=== PATIENT | female | born 1960 | race Caucasian/White ===

== ENCOUNTER 2019-12-25 16:48 | Emergency (ER) | payer BC, SELFPAY ==
[2019-12-25 17:01] VITALS: BP 157/98; PULSE 89; RESP 16; TEMP 37.3; O2SAT 99
--- NOTE | 2019-12-25 17:09 | ED.FEMALEGU ---
HPI - Female Genitourinary General Chief complaint: Urogenital-Female Stated complaint: possible uti History of Present Illness HPI Narrative: This is a 59-year-old white female who presented today with complaints of painful urination and frequent night urination, with urinary pressure. According to patient about 3 to 4 days ago she developed dysuria, frequency, nocturia. she would get up at least 5-6 times at night to urinate. She did take cystex at home to relieve the pain she did have a little relief. The patient denies SOB, CP, palpitation, extremity numbness, lightheadedness, dizziness, constipation, diarrhea, chills, hematuria, abdominal pain or cramping or incontinence or fever. Patients with leukocytes RBCs and nitrite in UA. Urine sent off for culture MD elicited complaint: dysuria Related Data Home Medications Medication Instructions Recorded Confirmed atorvastatin 40 mg PO DAILY 12/25/19 12/25/19 clotrimazole-betamethasone 1 applic TOPICAL BID 12/25/19 12/25/19 glycopyrrolate-formoterol [Bevespi 2 inh INHALATION DAILY 12/25/19 12/25/19 Aerosphere] metformin 500 mg PO DIRECTED 12/25/19 12/25/19 dsofsjdlea-nzpcjfazr-jgzmsrdgm 1 tablet PO DAILY 12/25/19 12/25/19 omeprazole 40 mg PO DAILY 12/25/19 12/25/19 semaglutide [Rybelsus] 7 mg PO DIRECTED 12/25/19 12/25/19 Allergies Allergy/AdvReac Type Severity Reaction Status Date / Time Penicillins Allergy Mild Rash Verified 12/25/19 17:01 Review of Systems Review of Systems: All systems reviewed & are unremarkable except as noted in HPI and below (10 point system review) [facility] Social History Social History Gender identity (if verbalized by the patient): Female Exam Narrative: Exam Narrative: GENERAL: This is a well-nourished, well-developed patient, in no apparent distress. HEAD: normocephalic, atraumatic. EYES: PERRL. Sclera clear/white. Vision is grossly intact. EARS: External ears normal, auditory canals clear and without drainage, TMs normal without perforation. Hearing grossly intact. NOSE: External nose normal with no obvious nasal discharge, nares without redness, no rhinorrhea. THROAT: Mucous membranes moist, posterior pharynx clear. NECK: Neck supple, non-tender without lymphadenopathy, masses or thyromegaly. CARDIOVASCULAR: Regular rate and rhythm without murmurs, gallops, or rubs. RESPIRATORY: Clear to auscultation. Breath sounds equal bilaterally. No wheezes, rales, or rhonchi. GASTROINTESTINAL: Abdomen soft, non-tender, nondistended. Bowel sounds are active. No hepato-splenomegaly, or palpable masses. No guarding. SKIN: warm, intact with no suspicious lesions or rash, good texture and turgor. NEURO: awake, alert, and oriented to person, place and time. There were no obvious focal neurologic abnormalities. Steady gait EXTREMITIES: Normal range of motion. No edema. No calf tenderness. Negative Homans sign bilaterally. BACK: Nontender without deformity or crepitance. No flank tenderness. Course Course Emergency Course: Patient discharged home with Macrobid is 100 mg p.o. twice daily for 7 days Vital Signs Vital signs: Vital Signs Temperature 99.2 F 12/25/19 17:01 Pulse Rate 89 12/25/19 17:01 Respiratory Rate 16 12/25/19 17:01 Blood Pressure 157/98 H 12/25/19 17:01 Pulse Oximetry 99 12/25/19 17:01 Temperature 99.2 F 12/25/19 17:01 Pulse Rate 89 12/25/19 17:01 Respiratory Rate 16 12/25/19 17:01 Blood Pressure 157/98 H 12/25/19 17:01 Pulse Oximetry 99 12/25/19 17:01 MDM - Female Genitourinary Lab Data Attestation: I reviewed the patient's lab results. Labs: Urine Glucose Negative Reference Range: Negative Urine Bilirubin Negative Reference Range: Negative Urine Ketone Negative
== END 2019-12-25 17:19 | disposition home or self-care (01) ==
PROVIDERS: Emergency Provider Nurse Practitioner; PCP Physician Assistant
DX: N39.0 Urinary tract infection, site not specified (principal); E78.00 Pure hypercholesterolemia, unspecified; I10 Essential (primary) hypertension; E11.9 Type 2 diabetes mellitus without complications
CPT/HCPCS: 81003; 87077; 87086; 87088; 87186; 99213; G0463

== ENCOUNTER 2020-04-09 17:58 | Emergency (ER) | payer BC, SELFPAY ==
[2020-04-09 18:14] VITALS: BP 163/84; PULSE 104; RESP 18; TEMP 37.2; O2SAT 97
--- NOTE | 2020-04-09 18:33 | ED.FEMALEGU ---
HPI - Female Genitourinary General Chief complaint: Urogenital-Female Stated complaint: UTI Time Seen by Provider: 04/09/20 18:26 Source: patient and RN notes reviewed Mode of arrival: ambulatory Limitations: no limitations History of Present Illness HPI Narrative: Patient presents today complaint of a 10-day history of dysuria. She has started developing low back pain and lower abdominal cramping in the last several days. Denies hematuria, fever, nausea or vomiting, sweats or chills. She has been taking Cystex which includes ibuprofen as well as Azo cranberry. Patient had a UTI back in December 2019 and was treated with Macrobid. She is sensitive per her previous urine culture. MD elicited complaint: dysuria Related Data Home Medications Medication Instructions Recorded Confirmed atorvastatin 40 mg PO DAILY 12/25/19 12/25/19 clotrimazole-betamethasone 1 applic TOPICAL BID 12/25/19 12/25/19 glycopyrrolate-formoterol [Bevespi 2 inh INHALATION DAILY 12/25/19 12/25/19 Aerosphere] metformin 500 mg PO DIRECTED 12/25/19 12/25/19 cllzlcadow-llxyyllom-meumcfxmh 1 tablet PO DAILY 12/25/19 12/25/19 omeprazole 40 mg PO DAILY 12/25/19 12/25/19 semaglutide [Rybelsus] 7 mg PO DIRECTED 12/25/19 12/25/19 Allergies Allergy/AdvReac Type Severity Reaction Status Date / Time Penicillins Allergy Mild Rash Verified 12/25/19 17:01 Review of Systems Review of Systems: Narrative: CONSTITUTIONAL: Denies body aches, fever, chills, or sweats. EYES: Denies visual changes, redness, or discharge. ENT: Denies rhinorrhea, congestion, sore throat, or otalgia. CARDIOVASCULAR: Denies chest pain, palpitations, or edema. RESPIRATORY: Denies cough or dyspnea. GASTROINTESTINAL: Denies nausea, vomiting, or diarrhea. + Lower abdominal cramping GENITOURINARY: Denies hematuria. + Dysuria SKIN: Denies rash, itching, or wounds. MUSCULOSKELETAL: Denies joint pain, or myalgia. + Low back pain NEUROLOGIC: Denies headache, numbness, tingling, or weakness. PSYCH: Denies depression or anxiety. [facility] Past Medical History Medical History (Updated 04/09/20 @ 18:37 by Dina Cox, INSTALLMENT ACCOUNT CHECKER, ) Diabetes GERD (gastroesophageal reflux disease) Hypercholesterolemia Hypertension Social History Social History Gender identity (if verbalized by the patient): Female Comments At time of signature, I have reviewed and agree with nursing past medical, surgical, social and family history unless otherwise noted. Please see nursing chart for further information. There is no relevant family history pertinent to the presenting complaint Exam Narrative: Exam Narrative: GENERAL: Well-appearing, well-nourished, and in no acute distress. HEAD: Normocephalic, atraumatic. EYES: EOMI. No redness or drainage. Conjunctivae normal. ENT: Mucous membranes pink and moist. NECK: Normal AROM. CHEST: No respiratory distress. Clear to auscultation. HEART: Regular rate and rhythm. No murmur appreciated. Normal peripheral pulses. ABDOMEN: Soft, nondistended, normal active bowel sounds. + Tender suprapubic area. -CVAT MUSCULOSKELETAL: No bony tenderness. EXTREMITIES: Normal range of motion. No edema. SKIN: Warm, dry, no rash. Capillary refill normal. Normal skin turgor. NEURO: No focal deficits. Alert and oriented x3. Gait steady. PSYCH: Normal affect. No signs of depression or anxiety. Course Vital Signs Vital signs: Vital Signs Temperature 99.0 F 04/09/20 18:14 Pulse Rate 104 H 04/09/20 18:14 Respiratory Rate 18 04/09/20 18:14 Blood Pressure 163/84 H 04/09/20 18:14 Pulse Oximetry 97 04/09/20 18:14 Temperature 99.0 F 04/09/20 18:14 Pulse Rate 104 H 04/09/20 18:14 Respiratory Rate 18 04/09/20 18:14 Blood Pressure 163/84 H 04/09/20 18:14 Pulse Oximetry 97 04/09/20 18:14 Reviewed. Pt has been instructed to follow up with her PCP regarding her elevated blood pressure today
== END 2020-04-09 18:43 | disposition home or self-care (01) ==
PROVIDERS: Emergency Provider Nurse Practitioner; PCP Physician Assistant
DX: N30.00 Acute cystitis without hematuria (principal); E11.9 Type 2 diabetes mellitus without complications; K21.9 Gastro-esophageal reflux disease without esophagitis; E78.00 Pure hypercholesterolemia, unspecified; I10 Essential (primary) hypertension
CPT/HCPCS: 81003; 87086; 99213; G0463

== ENCOUNTER 2020-05-25 09:35 | Outpatient (CLI) | payer BC, SELFPAY ==
--- NOTE | ~2020-05-25 | MM_ITS ---
EXAMINATION: MM screening moris BI w john HISTORY: Screening TECHNIQUE: Craniocaudal and mediolateral oblique 3-D tomosynthesis images were obtained and synthetic 2-D images were generated. CAD analysis was submitted and interpreted. COMPARISON: Comparison to multiple prior studies sequentially, with oldest reviewed study dated 04/2010. BREAST PARENCHYMAL COMPOSITION: There are scattered areas of fibroglandular density. FINDINGS: Slightly increased size of 9 mm mass in the lower inner quadrant of the right breast. The l eft breast is stable without new mass, calcification or suspicious architectural distortion. IMPRESSION: 1. Subtle increased size of circumscribed radiolucent 9 mm mass lower inner quadrant of the right brendan ast. 2. Targeted right breast ultrasound recommended. BI-RADS Category 0: Incomplete: Needs additional imaging evaluation. Reviewed, dictated and finalized at location A. IMPRESSION: 1. Subtle increased size of circumscribed radiolucent 9 mm mass lower inner alysha drant of the right breast. 2. Targeted right breast ultrasound recommended. BI-RADS Category 0: Incomplete: Needs additional imaging evaluation.
== END 2020-05-25 09:36 | disposition home or self-care (01) ==
LOC: ANHIMG 09:38
PROVIDERS: PCP Physician Assistant; Visit Provider Physician Assistant
DX: Z12.31 Encounter for screening mammogram for malignant neoplasm of breast (principal); R92.8 Other abnormal and inconclusive findings on diagnostic imaging of breast
CPT/HCPCS: 77063; 77067

== ENCOUNTER 2020-06-14 12:25 | Outpatient (CLI) | payer BC, SELFPAY ==
--- NOTE | ~2020-06-14 | MMUS_ITS ---
EXAMINATION: MM diagnostic mammo unilat RT, US breast RT limited HISTORY: Follow-up right breast mass TECHNIQUE: Additional 3-D tomosynthesis images of the right breast were performed and synthetic 2-D i mages were generated. CAD analysis was submitted and interpreted. High resolution Limited right breas t ultrasound was performed. COMPARISON: Comparison to multiple prior studies sequentially, with oldest reviewed study dated 02/28. BREAST PARENCHYMAL COMPOSITION: Breast composed of scattered areas of fibroglandular density. FINDINGS: MAMMOGRAPHIC FINDINGS: There is a radiolucent mass in the lower inner quadrant of the right breast with circumscribed margin s measuring 8 mm, middle third. There are no suspicious calcifications or architectural distortion. ULTRASOUND: Limited right breast ultrasound: At 2:00, 3 cm from the nipple there is an 8 mm cyst corresponding to the mammographic finding. No suspicious masses to suggest malignancy. IMPRESSION: 1. No evidence for malignancy in the right breast. Benign findings. 2. Routine yearly screening mammogram and regular clinical breast examination are recommended. BI-RADS Category 2: Benign finding(s). Reviewed, dictated and finalized at location A. IMPRESSION: 1. No evidence for malignancy in the right breast. Benign findings. 2. Routine yearly screening mammogram and regular clinical breast examination a re recommended. BI-RADS Category 2: Benign finding(s).
== END 2020-06-14 12:26 | disposition home or self-care (01) ==
PROVIDERS: PCP Physician Assistant; Visit Provider Physician Assistant
DX: R92.8 Other abnormal and inconclusive findings on diagnostic imaging of breast (principal)
CPT/HCPCS: 76642; 77065

== ENCOUNTER 2021-01-08 11:09 | Emergency (ER) | payer BC, SELFPAY ==
--- NOTE | 2021-01-08 11:17 | ED.GENADULT ---
HPI - General Adult General Chief complaint: Head Injury Stated complaint: redness left eye/head injury Time Seen by Provider: 01/08/21 11:37 Source: patient Mode of arrival: ambulatory Limitations: no limitations History of Present Illness HPI narrative: 61-year-old female patient presents to the [facility] with complaints of left eye redness and head injury. Patient states that about 5 days ago she was celebrating her birthday at a bar. Patient states that she is type II diabetic and was taking shots. Patient states that She knows she is on the floor of a concrete bathroom and people are helping her up. Patient states that she does have a laceration to her lip that was swollen but is doing much better. Patient states she noticed that her eye is red. But her concerning symptoms is that she is still feeling lightheaded, dizzy and nauseous even after her fall. Unaware if she hit her head or not because she does not remember the incident. Related Data Home Medications Medication Instructions Recorded Confirmed clotrimazole-betamethasone 1 applic TOPICAL BID 12/25/19 12/25/19 glycopyrrolate-formoterol [Bevespi 2 inh INHALATION DAILY 12/25/19 12/25/19 Aerosphere] metformin 500 mg PO DIRECTED 12/25/19 12/25/19 kflaapgude-whvjkhrfa-tidmsofxc 1 tablet PO DAILY 12/25/19 12/25/19 omeprazole 40 mg PO DAILY 12/25/19 12/25/19 Allergies Allergy/AdvReac Type Severity Reaction Status Date / Time Penicillins Allergy Mild Rash Verified 01/08/21 11:43 Review of Systems Review of Systems: CONSTITUTIONAL: Denies fever, chills, or sweats. EYES: Denies visual changes, positive right eye redness, denies discharge. ENT: Denies rhinorrhea, congestion, sore throat, or otalgia. CARDIOVASCULAR: Denies chest pain, palpitations, or edema. RESPIRATORY: Denies cough or dyspnea. GASTROINTESTINAL: Denies abdominal pain, positive nausea, negative vomiting, or diarrhea. GENITOURINARY: Denies dysuria or hematuria. SKIN: Denies rash or itching. MUSCULOSKELETAL: Denies back pain, joint pain, or myalgia. NEUROLOGIC: Positive headache, denies numbness, or weakness. Positive lightheadedness, dizziness PSYCHIATRIC: Denies anxiety or depression. PMFSH Past Medical History Medical History Diabetes GERD (gastroesophageal reflux disease) Hypercholesterolemia Hypertension Social History Social History Gender identity (if verbalized by the patient): Female Comments At the time of my signature I agree with nursing past medical history, surgical, social, and family history. There is no relevant family history pertinent to the presenting complaint. Exam Narrative: GENERAL: Well-appearing, well-nourished, and in no acute distress. HEAD: Normocephalic, atraumatic. EYES: PERRLA and EOMI. patient does have a subconjunctival hemorrhage of the right eye present ENT: Nares clear, no rhinorrhea or epistaxis. Mucous membranes moist. NECK: Supple. No lymphadenopathy CHEST: Clear to auscultation. No respiratory distress. HEART: Regular rate and rhythm. No murmur heard. Normal peripheral pulses. ABDOMEN: Soft, nontender, nondistended, normal active bowel sounds. EXTREMITIES: Normal range of motion. No edema. SKIN: Warm, dry, no rash. Patient does have approximately 1/2 cm closed laceration with swelling noted to the right side of the upper lip. Appears to be healing well NEURO: Alert and oriented x4, GCS 15. Cranial nerves II through XII grossly intact. No focal neurological deficits. Normal muscle strength and tone. Normal deep tendon reflexes. Negative Babinski, normal finger to nose coordination he had normal heel to hill glide. Speech is clear. Normal gait. Negative Romberg and no pronator drift Course Vital Signs Vital signs: Vital Signs Temperature 36.8 C 01/08/21 11:19 Pulse Rate 101 H 01/08/21 11:19 Respiratory Rate 16 01/08/21 11:19 B
[2021-01-08 11:19] VITALS: BP 173/93; PULSE 101; RESP 16; TEMP 36.8; O2SAT 98
== END 2021-01-08 11:55 | disposition short-term general hospital (02) ==
PROVIDERS: Emergency Provider Nurse Practitioner Family; PCP Physician Assistant
DX: S09.90XA Unspecified injury of head, initial encounter (principal); X58.XXXA Exposure to other specified factors, initial encounter; H11.31 Conjunctival hemorrhage, right eye; E11.9 Type 2 diabetes mellitus without complications; K21.9 Gastro-esophageal reflux disease without esophagitis; E78.00 Pure hypercholesterolemia, unspecified; I10 Essential (primary) hypertension
CPT/HCPCS: 99212; G0463

== ENCOUNTER 2021-01-08 12:04 | Emergency (ER) | payer BC, SELFPAY ==
--- NOTE | ~2021-01-08 | CT_ITS ---
EXAMINATION: CT brain wo con INDICATION: Nausea and lightheadedness COMPARISON: None TECHNIQUE: Standard unenhanced head CT. The dose-length product (DLP) was 605.33 mGy-cm. The mA was a djusted according to patient size. Iterative reconstruction technique was employed. FINDINGS: There is no acute intraparenchymal hemorrhage. No evidence of mass lesion. No evidence of a cute infarction. There is mild periventricular and subcortical hypodensity probably related to small vessel ischemic disease. There is mild prominence of the sulci and ventricles related to cerebral atr ophy. Intracranial calcified cerebral atherosclerosis is noted. An anterior extra-axial area of CSF a ttenuation near the left frontal lobe likely reflects an arachnoid cyst. Calcifications are noted in the left basal ganglia. The orbits and soft tissues are unremarkable. The visualized sinuses and mast oid air cells are well aerated. IMPRESSION: 1. No acute intracranial abnormality. 2. Age related findings. Reviewed, dictated and finalized at location A. [facility]ERED NURSE [facility]
[2021-01-08 12:08] VITALS: BP 161/97; PULSE 96; RESP 16; TEMP 36.4; O2SAT 98
--- NOTE | 2021-01-08 13:24 | ED.HEATRA ---
HPI - Head Injury General Chief complaint: Head Injury Stated complaint: fell sunday, dizziness Time Seen by Provider: 01/08/21 12:14 History of Present Illness HPI Narrative: Patient is a 61-year-old female who presents the ER with headache/lightheadedness and nausea. Patient went out for her birthday 5 days ago and took some shots and then lost consciousness in the bathroom. She woke up with a subconjunctival hemorrhage to the right eye. Her symptoms have been persistent since then. She is also developed some new postnasal drip with occasional cough. No fevers or chills or sweats. No chest pain or chest pressure. She went to an urgent care to be evaluated today due to persistence of her nausea and lightheadedness. She reports her symptoms are worsened by activity. Urgent care referred here for CT scan of the brain to rule out intracranial process. Patient does not take any blood thinners. Related Data Home Medications Medication Instructions Recorded Confirmed clotrimazole-betamethasone 1 applic TOPICAL BID 12/25/19 01/08/21 glycopyrrolate-formoterol [Bevespi 2 inh INHALATION DAILY 12/25/19 01/08/21 Aerosphere] metformin 500 mg PO DIRECTED 12/25/19 01/08/21 gtjxokwrkv-djqakrzme-gtmqwtkrf 1 tablet PO DAILY 12/25/19 01/08/21 omeprazole 40 mg PO DAILY 12/25/19 01/08/21 Allergies Allergy/AdvReac Type Severity Reaction Status Date / Time Penicillins Allergy Mild Rash Verified 01/08/21 12:08 Review of Systems Review of Systems: All systems reviewed & are unremarkable except as noted in HPI and below Constitutional: Constitutional: Denies chills, Reports fatigue and Denies fever(s) ENT: Denies nasal congestion and Denies sore throat Comments: sore throat Respiratory: Respiratory: Reports cough, Denies dyspnea and Denies wheezing Gastrointestinal: Gastrointestinal: Denies abdominal pain, Reports nausea and Denies vomiting Neurologic: Reports dizziness, Reports headache(s), Denies focal weakness and Denies numbness PMFSH Past Medical History Medical History Diabetes GERD (gastroesophageal reflux disease) Hypercholesterolemia Hypertension Social History Social History (Updated 01/08/21 @ 13:27 by Venkata Winston MD) Smoking status: Current every day smoker Gender identity (if verbalized by the patient): Female Exam Narrative: GENERAL: Well-appearing, well-nourished, and in no acute distress. HEAD: Normocephalic, atraumatic. EYES: PERRL and EOMI. right eye subconjunctival hemorrhage. Normal conjunctiva. CHEST: Clear to auscultation. No respiratory distress. HEART: Regular rate and rhythm. Normal peripheral pulses. EXTREMITIES: Normal range of motion. No edema. NEURO: Alert and oriented x3. PSYCH: Normal mood and affect. Course Course Emergency Course: CT negative. Discharge home. Vital Signs Vital signs: Vital Signs Temperature 97.6 F 01/08/21 12:08 Pulse Rate 96 01/08/21 12:08 Respiratory Rate 16 01/08/21 12:08 Blood Pressure 161/97 H 01/08/21 12:08 Pulse Oximetry 98 01/08/21 12:08 Temperature 97.6 F 01/08/21 12:08 Pulse Rate 96 01/08/21 12:08 Respiratory Rate 16 01/08/21 12:08 Blood Pressure 161/97 H 01/08/21 12:08 Pulse Oximetry 98 01/08/21 12:08 MDM - Head Injury Imaging Data Radiologist's impression: ITS Impressions Head CT 01/08/21 12:24 IMPRESSION: 1. No acute intracranial abnormality. 2. Age related findings. Discharge Plan Discharge Clinical Impression: Concussion Patient Disposition: Home, Self-Care Condition: Stable Instructions: Concussion (ED) Additional Instructions: Return the ER if you have chest pain or shortness of breath, you cannot keep down food or water, you lose consciousness, you have additional concerns. Prescriptions: No Action metformin 500 mg tablet 500 mg PO DIRECTED RF: 0 omeprazole 40 mg capsule,delay
== END 2021-01-08 13:50 | disposition home or self-care (01) ==
PROVIDERS: Emergency Provider Emergency Medicine; PCP Physician Assistant
DX: S06.0X9A Concussion with loss of consciousness of unspecified duration, initial encounter (principal); E11.9 Type 2 diabetes mellitus without complications; K21.9 Gastro-esophageal reflux disease without esophagitis; E78.00 Pure hypercholesterolemia, unspecified; I10 Essential (primary) hypertension; Z79.84 Long term (current) use of oral hypoglycemic drugs; F17.200 Nicotine dependence, unspecified, uncomplicated; W19.XXXA Unspecified fall, initial encounter
CPT/HCPCS: 70450; 99284

== ENCOUNTER 2021-12-18 10:05 | Emergency (ER) | payer BC, SELFPAY ==
[2021-12-18 11:18] VITALS: BP 123/87; PULSE 104; RESP 16; TEMP 36.6; O2SAT 100
[2021-12-18 11:25] VITALS: BP 123/87; PULSE 104; RESP 16; TEMP 36.6; O2SAT 100
--- NOTE | 2021-12-18 11:48 | ED.NAVMDI ---
HPI - Nausea/Vomiting/Diarrhea General Chief complaint: Nausea/Vomiting/Diarrhea Stated complaint: vomiting Time Seen by Provider: 12/18/21 11:55 Source: patient and RN notes reviewed Mode of arrival: ambulatory Limitations: no limitations History of Present Illness HPI Narrative: 61-year-old female presents concern for sore throat, nasal congestion, rhinorrhea, vomiting and nausea. She reports a similar episode of these symptoms approximately 2 weeks ago that resolved, however at that time she did not have vomiting. She denies abdominal pain, constipation, diarrhea, fever, body aches, chills, sweats. MD elicited complaint: nausea and vomiting Related Data Home Medications Medication Instructions Recorded Confirmed metformin 500 mg tablet 500 mg PO DIRECTED 12/25/19 12/18/21 omeprazole 40 mg capsule,delayed 40 mg PO DAILY 12/25/19 12/18/21 release amlodipine 10 mg tablet 10 mg PO DAILY 12/18/21 12/18/21 atorvastatin 40 mg tablet 40 mg PO DAILY 12/18/21 12/18/21 hydrochlorothiazide 25 mg tablet 25 mg PO DAILY 12/18/21 12/18/21 Allergies Allergy/AdvReac Type Severity Reaction Status Date / Time Penicillins Allergy Mild Rash Verified 12/18/21 11:17 Review of Systems Review of Systems: CONSTITUTIONAL: Denies malaise, chills, sweats, or fever. EYES: Denies visual changes, redness, or discharge. ENT: Reports rhinorrhea, congestion, sore throat. Denies sinus pain, otalgia CARDIOVASCULAR: Denies chest pain, palpitations, or edema. RESPIRATORY: Denies cough. Denies dyspnea. GASTROINTESTINAL: Denies abdominal pain, diarrhea. Reports nausea and vomiting SKIN: Denies rash or itching. MUSCULOSKELETAL: Denies myalgia. NEUROLOGIC: Denies headache. All systems reviewed & are unremarkable except as noted in HPI and below PMFSH Past Medical History Medical History Diabetes GERD (gastroesophageal reflux disease) Hypercholesterolemia Hypertension Social History Social History (Updated 01/08/21 @ 13:27 by Venkata Winston MD) Smoking status: Current every day smoker Gender identity (if verbalized by the patient): Female Comments At time of signature, agree with nursing past medical, surgical, social and family history. There is no relevant family history pertinent to the presenting complaint Exam Narrative: GENERAL: Well-appearing, well-nourished, and in no acute distress. HEAD: Normocephalic, atraumatic. EYES: PERRLA, conjunctivae clear, and EOMI. ENT: Nares clear, turbinates pink, no rhinorrhea or epistaxis. Mucous membranes moist. Oropharynx without edema, erythema, or lesions. Tonsils not enlarged and without exudate. NECK: Supple. No lymphadenopathy CHEST: Speaks in full sentences. No respiratory distress. HEART: Regular rate and rhythm. ABDOMEN: Soft, flat, nondistended, nontender. No guarding, rebound tenderness, or rigidity. No pulsatile masses. Bowel sounds present in all four quadrants. No organomegaly. Negative Perez?s sign. No periumbilical tenderness. No Supra public tenderness or distension. Good femoral pulses bilaterally. No hernia noted. No scars or surface trauma. SKIN: Warm, dry, no rash. NEURO: Alert and oriented x3. PSYCH: Normal mood and affect Course Course Emergency Course: Patient is aware of diagnosis, understands and agrees to treatment plan. Anticipatory guidance given. Patient agrees to follow-up as directed and is aware of reasons to seek care at the emergency department. Portions of this record may have been created with voice recognition software Level of Care: Express Care Visit Vital Signs Vital signs: Vital Signs Temperature 97.8 F 12/18/21 11:18 Pulse Rate 104 H 12/18/21 11:18 Respiratory Rate 16 12/18/21 11:18 Blood Pressure 123/87 12/18/21 11:18 Pulse Oximetry 100 12/18/21 11:18 Oxygen Delivery Room Air 12/18/21 11:18 Temperature 97.8 F 12/18/21 11:25 Pulse Rate 104 H
== END 2021-12-18 12:17 | disposition home or self-care (01) ==
PROVIDERS: Emergency Provider Nurse Practitioner; PCP Physician Assistant
DX: R11.2 Nausea with vomiting, unspecified (principal); E11.9 Type 2 diabetes mellitus without complications; I10 Essential (primary) hypertension; F17.200 Nicotine dependence, unspecified, uncomplicated
CPT/HCPCS: 87081; 87880; 99213; G0463

== ENCOUNTER 2022-08-07 10:17 | Outpatient (CLI) | payer BC, SELFPAY ==
--- NOTE | ~2022-08-07 | CT_ITS ---
CT Scan of the Chest without Contrast: Clinical Indication: Lung cancer screening, personal history of tobacco dependence Technique: Contiguous sections were acquired throughout the chest without intravenous contrast. Dose reduction technique was used on this scan by utilizing automated exposure control and iterative recon struction technique. The dose-length product (DLP) was 105.61 mGy-cm. COMPARISON: 11/01/2018 Findings: There is no evidence of any significant mediastinal, hilar or axillary lymphadenopathy. Atherosclerot ic changes of the aorta and coronary arteries are present. There is no evidence of pleural or pericardial effusion. Calcified left upper lobe granuloma noted. Lungs are otherwise clear. Images through the upper abdomen reveal stable 3.6 cm left adrenal nodule. Impression: Lung RADS 2: Benign. 12 month follow-up screening CT advised. Stable 3.6 cm left adrenal nodule. Stability over this time interval is compatible with benign lesion . Reviewed, dictated and finalized at [facility]. Impression: Lung RADS 2: Benign. 12 month follow-up screening CT advised. Stable 3.6 cm left adrenal nodule. Stability over this time interval is compati ble with benign lesion.
== END 2022-08-07 10:18 | disposition home or self-care (01) ==
LOC: ANHIMG 10:22
PROVIDERS: PCP Physician Assistant; Visit Provider Physician Assistant
DX: Z12.2 Encounter for screening for malignant neoplasm of respiratory organs (principal); Z87.891 Personal history of nicotine dependence
CPT/HCPCS: 71271

== ENCOUNTER 2023-09-19 12:19 | Emergency (ER) | payer MEDICARE, SELFPAY ==
--- NOTE | ~2023-09-19 | XR_ITS ---
EXAMINATION: XR chest 2V DATE: 09/19/2023 12:49 INDICATION: Cough. TECHNIQUE: Frontal and lateral views of the chest were obtained. COMPARISON: Chest 2 views 10/28/2010 FINDINGS: There is no pneumonia, pleural effusion, or pneumothorax. The heart size is normal. Surgica l clips in the right upper quadrant are likely from cholecystectomy. IMPRESSION: 1. No acute cardiopulmonary disease. Reviewed, dictated and finalized at location A.
--- NOTE | 2023-09-19 12:20 | ED.URI ---
HPI - URI/Sore Throat General Chief Complaint: Upper Respiratory Infection Stated Complaint: Cough Time Seen by Provider: 09/19/23 12:19 Source: patient Mode of arrival: ambulatory Limitations: no limitations History of Present Illness HPI Narrative: Marta is a 63-year-old female patient presenting to the clinic today with complaints of a cough x3 weeks. She reports cough is mostly nonproductive but when she is able to bring up some phlegm and is clear in color. States she does have a history of COPD. He denies any shortness of breath or chest pain. No acid reflux symptoms. She is not had any changes in her medications recently. States she noticed that she has had a scratchy throat for the past few days and was worse this morning when she woke up. No fever, chills, body aches. She is a current smoker. MD elicited complaint: cough Related Data Home Medications Medication Instructions Recorded Confirmed metformin 500 mg tablet 500 mg PO DIRECTED 12/25/19 12/18/21 omeprazole 40 mg capsule,delayed 40 mg PO DAILY 12/25/19 12/18/21 release amlodipine 10 mg tablet 10 mg PO DAILY 12/18/21 12/18/21 hydrochlorothiazide 25 mg tablet 25 mg PO DAILY 12/18/21 12/18/21 olmesartan 40 mg tablet mg 09/19/23 rosuvastatin 20 mg tablet mg 09/19/23 trazodone 50 mg tablet mg 09/19/23 Allergies Allergy/AdvReac Type Severity Reaction Status Date / Time Penicillins Allergy Mild Rash Verified 09/19/23 12:35 Review of Systems Review of Systems: Pertinent positives per HPI. Patient denies any fever, chills, rash, headache, visual changes, dizziness, shortness of breath, chest pain, palpitations, nausea, vomiting, diarrhea, constipation, abdominal pain, or any urinary issues. [facility] Past Medical History Medical History Diabetes GERD (gastroesophageal reflux disease) Hypercholesterolemia Hypertension Social History Social History Smoking status: Current every day smoker Gender identity (if verbalized by the patient): Female Comments At the time of my signature, I reviewed and agree with the nursing past medical, surgical, social, and family history. There is no relevant family history pertinent to the patient complaint. Exam Narrative: General: Well-developed, well nourished, in no apparent distress Head: Normocephalic, atraumatic Eyes: Pupils equally round and reactive to light bilaterally, EOM intact, sclera and conjunctive clear, no discharge, lids normal Ears: TMs intact and clear, ear canals clear, no drainage, grossly hearing normal. Nose: Nares patent, clear discharge, no inflammation, no sinus tenderness. Mouth: Oral pharynx without lesions or masses, good dentition, MMM. Neck: Supple, trachea midline, no enlargement of anterior or posterior cervical nodes, no thyroid masses or goiter palpable. Cardio: Regular rate and rhythm, s1 and s2 normal, no murmur appreciated. Resp: Diminished in the bases with mild rhonchi to the right lower lobe, no rales, wheezing or rubs Course Course Emergency Course: Portions of this record may have been created with voice recognition software. Level of Care: Express Care Visit Vital Signs Vital signs: Vital Signs Temperature 36.8 C 09/19/23 12:30 Pulse Rate 86 09/19/23 12:30 Respiratory Rate 18 09/19/23 12:30 Blood Pressure 123/92 H 09/19/23 12:30 Pulse Oximetry 98 09/19/23 12:30 Temperature 36.8 C 09/19/23 12:30 Pulse Rate 86 09/19/23 12:30 Respiratory Rate 18 09/19/23 12:30 Blood Pressure 123/92 H 09/19/23 12:30 Pulse Oximetry 98 09/19/23 12:30 Vital signs reviewed MDM - URI/Sore Throat MDM Narrative Medical decision making narrative: At the time of visit patient is resting comfortably on the exam table. Patient appears to be nontoxic. Labs: Strep test was negative in the clinic today. We will se
[2023-09-19 12:30] VITALS: BP 123/92; PULSE 86; RESP 18; TEMP 36.8; O2SAT 98
[2023-09-19 12:50] VITALS: PULSE 86; RESP 18; O2SAT 98
[2023-09-19 12:54] LABS: EDSTREPNEGPOS1 Presumptive Negative
== END 2023-09-19 13:15 | disposition home or self-care (01) ==
LOC: EXPCOLL 12:24
PROVIDERS: Emergency Provider Nurse Practitioner Family; PCP Physician Assistant
DX: J40 Bronchitis, not specified as acute or chronic (principal); E11.9 Type 2 diabetes mellitus without complications; K21.9 Gastro-esophageal reflux disease without esophagitis; E78.00 Pure hypercholesterolemia, unspecified; I10 Essential (primary) hypertension; F17.200 Nicotine dependence, unspecified, uncomplicated
CPT/HCPCS: 71046; 87081; 87880; 99213; G0463

== ENCOUNTER 2024-11-28 09:48 | Emergency (ER) | payer MEDICARE, SELFPAY ==
--- NOTE | 2024-11-28 09:49 | ED_ITS ---
HPI - URI/Sore Throat General Chief Complaint: Upper Respiratory Infection Stated Complaint: Sore Throat/Sinus Time Seen by Provider: 11/28/24 10:07 Source: patient, RN notes reviewed and old records reviewed Mode of arrival: ambulatory Limitations: no limitations History of Present Illness HPI Narrative: 64-year-old female presents to the [facility] with runny nose, cough, postnasal drainage, sore throat for 5 days. Patient states that she has taken DayQuil, did take NyQuil last night. Denies fevers, chest pain. Onset (ago): day(s) (5) Related Data Home Medications ?Medication ?Instructions ?Recorded ?Confirmed ?Last Taken ?Type metformin 500 mg tablet 500 mg PO DIRECTED 11/28/24 Unknown History amlodipine 10 mg tablet 10 mg PO DAILY 12/18/2111/12 Unknown History hydrochlorothiazide 25 mg tablet 25 mg PO DAILY 11/28/24 Unknown History olmesartan 40 mg tablet mg 09/19/23 Unknown History rosuvastatin 20 mg tablet mg 09/19/23 Unknown History trazodone 50 mg tablet mg 09/19/23 Unknown History bupropion HCl 300 mg 24 hr tablet, mg PO 11/28/24 Unk nown History extended release cilostazol 100 mg tablet mg 11/28/24 Unknown History escitalopram oxalate 10 mg tablet mg 11/28/24 Unknown History pantoprazole 40 mg tablet,delayed mg PO 11/28/24 Unkn own History release Allergies Allergy/AdvReac Type Severity Reaction Status Date / Time Penicillins Allergy Mild Rash Verified 11/28/24 09:49 Review of Systems Review of Systems: All systems reviewed & are unremarkable except as noted in HPI and below Constitutional: Constitutional: Reports no additional constitutional complaints ENT: Reports as per HPI, Reports post nasal drip, Reports sinus pressure and Reports sore throat Cardiovascular: Cardiovascular: Reports no additional cardiovascular complaints, Denies chest pain and Denies dyspnea Respiratory: Respiratory: Reports as per HPI, Denies chest congestion, Reports cough and Denies dyspnea Musculoskeletal: Musculoskeletal: Reports no additional musculoskeletal complaints Integumentary/Breasts: Skin/Breast: Reports system reviewed and no additional complaints, except as docu PMFSH Past Medical History Medical History Hypercholesterolemia Diabetes Hypertension GERD (gastroesophageal reflux disease) Social History Social History Smoking status: Current every day smoker Gender identity (if verbalized by the patient): Female Comments At the time of my signature, I reviewed and agree with the nursing past medical, surgical, social, and family history. There is no relevant family history pertinent to the patient complaint. Exam Const: General: cooperative, healthy appearing, comfortable, no acute distress, well developed, alert and well nourished Nutritional Appearance: well nourished Orientation/consciousness: patient oriented x3 Limitations: no limitations HENMT: Head: normal to inspection Ears: hearing grossly normal bilaterally, external ears normal, TM's normal bilaterally, EAC's normal, mastoids normal and no periauricular adenopathy Mouth: Yes Normal oral and palatal mucosa present, Yes lip normal, Yes tongue normal and Yes moist mucous membranes Throat: posterior oropharynx normal, uvula midline, postnasal drainage and no uvular edema Eyes: General: appearance normal, both eyes and all related structures Alignment and Position: alignment normal Neck: Neck: normal visual inspection, full ROM, no lymphadenopathy and no meningeal signs Chest: Chest palpation & inspection: normal inspection of the chest Resp: Effort & Inspection: normal respiratory effort and able to speak in complete sentences Auscultation: clear to auscultation bilaterally, no crackles, no rales, no rhonchi and no wheezes Cardio: Rate: regular rate Skin: General skin exam: normal color and no rashes or lesions noted Neuro: General: patient oriented x3, gait normal, moves all extremities and no meningeal signs Cognition (Neuro): normal cognition Speech: normal speech Gait exam (Neuro): Normal gait present Extrem: General: normal to inspection, full ROM, capillary refill normal and normal gait Psych: Appearance: grossly normal and well kempt Mental Status: mental stat us grossly normal Speech and movement: Normal speech and movement present and Clear speech present Affect: normal affect Attitude: cooperative Course Course Level of Care: Express Care Visit Vital Signs Vital signs: Vital Signs Temperature 99.4 F 11/28/24 10:06 Pulse Rate 92 11/28/24 10:06 Respiratory Rate 14 11/28/24 10:06 Blood Pressure 141/93 H 11/28/24 10:06 Pulse Oximetry 99 11/28/24 10:06 Oxygen Delivery Room Air 11/28/24 10:06 Temperature 99.4 F 11/28/24 10:06 Pulse Rate 92 11/28/24 10:06 Respiratory Rate 14 11/28/24 10:06 Blood Pressure 141/93 H 11/28/24 10:06 Pulse Oximetry 99 11/28/24 10:06 Oxygen Delivery Room Air 11/28/24 10:06 Reviewed MDM - URI/Sore Throat MDM Narrative Medical decision making narrative: Patient sitting in exam room. Patient is nontoxic, vitals stable. Patient presents with 5 days of sore throat, sinus drainage, cough most likely due to postnasal drainage. Patient is flu, COVID, strep were negative. Discussed [id number] products Patient is appropriate for outpatient treatment with close follow-up Discharge instructions reviewed with patient, as well as provided in writing per nursing staff. The instructions also include specific and strict return/GO TO THE ER as well as f/u information. All questions have been answered, and the patient deny any further questions with discharge and discharge plan. Some parts of this dictation were generated by voice recognition software and may contain typographical and/or grammatical inaccuracies. Differential Diagnosis Differential diagnosis: Likely upper respiratory infection, otitis media, sinusitis, viral infection, bronchitis, influenza and pharyngitis Lab Data Labs: Lab Results 11/28/24 Range/Units 10:20 POC Influenza A Ag Negative (Negative) POC Influenza B Ag Negative (Negative) POC SARS CoV-2 Ag Negative (Negative) POC Grp A Strep Screen Negative (Negative) Reviewed Critical Care Time Critical Care Time Critical Care Time: No Discharge Plan Discharge Clinical Impression: Post-nasal drainage Sinusitis Qualifiers: Sinusitis location: pansinusitis Chronicity: acute Recurrence: not specified as recurrent Qualified Code(s): J01.40 - Acute pansinusitis, unspecified Patient Disposition: Home Condition: Stable Instructions: Antibiotic Form, Sinusitis (ED), Postnasal Drip (DC) Additional Instructions: Your rapid strep swab was negative today at [facility]. A throat culture will be sent to the laboratory for further testing. If the test is positive, you will receive a phone call within 48 hours and an appropriate antibiotic will be initiated at that time. Your rapid COVID test were negative Your rapid flu test was negative Your symptoms are likely due to a viral illness, which is not treated with antibiotics. Typically viral infections last 7-10 days, can linger for couple of weeks. It is very important to treat your symptoms. Drink plenty of water, Gatorade, Pedialyte, ice pops or Jell-O. -Alternate Tylenol and Motrin per package directions for fever or pain. You can alternate every 4 hours -Antihistamine medication such as Zyrtec/Claritin/Josey during the day can help improve symptoms. -doing daily nasal irrigations can help relieve pressure your sinuses. Things like a Neti pot -Use Flonase twice a day for 5 days then daily to help reduce the inflammation and dry up your sinuses. -You can also use Coricidin HBP or Mucinex. Be sure to drink plenty of water with this medication at least 8 ounces with every dose and it is important to drink 8 to 10 glasses of water per day. Water is a natural decongestant -Eat and drink things that are easy to swallow, like tea or soup, or popsicles. -Oral rinses such as: Salt water gargles and/or may use topical anesthetic (eg. Chloraseptic spray) or lozenges to relieve dryness or throat pain). -Frequent hand washing or hand contracting support specialist is one of the best ways to prevent spread of infection. -Using a vaporizer or humidifier at night will also help thin secretions and help with coughing up phlegm. -Follow up with primary care provider in 7-10 days if condition is not improving - For new or worsening symptoms go directly to the nearest ER Patient Language: Amharic Prescriptions: No Action amlodipine 10 mg tablet 10 mg PO DAILY hydrochlorothiazide 25 mg tablet 25 mg PO DAILY metformin 500 mg tablet 500 mg PO DIRECTED trazodone 50 mg tablet olmesartan 40 mg tablet rosuvastatin 20 mg tablet albuterol sulfate 90 mcg/actuation HFA aerosol inhaler 2 puff inhalation Q4-6H PRN (Reason: shortness of breath or wheezing) 30 Days Qty: 8.5 0RF cilostazol 100 mg tablet pantoprazole 40 mg tablet,delayed release (DR/EC) PO escitalopram oxalate 10 mg tablet bupropion HCl 300 mg tablet extended release 24 hr PO Follow-up/Referrals: Sierra,REEMA Mcgraw [Primary Care Provider, Unknown] - 1 Week Stand Alone Forms: Work/School Release IP Time of Disposition: 10:36
[2024-11-28 10:06] VITALS: BP 141/93; PULSE 92; RESP 14; TEMP 37.4; O2SAT 99
[2024-11-28 10:25] LABS: EDCOVIDSCREEN Negative (Negative); EDINFLUASCREEN Negative (Negative); EDINFLUBSCREEN Negative (Negative); EDSTREPNEGPOS1 Negative (Negative)
== END 2024-11-28 10:42 | disposition home or self-care (01) ==
PROVIDERS: Emergency Provider Nurse Practitioner; PCP Physician Assistant
DX: R09.82 Postnasal drip (principal); J01.40 Acute pansinusitis, unspecified; Z20.822 Contact with and (suspected) exposure to COVID-19; E11.9 Type 2 diabetes mellitus without complications; Z79.4 Long term (current) use of insulin; I10 Essential (primary) hypertension; E78.00 Pure hypercholesterolemia, unspecified; K21.9 Gastro-esophageal reflux disease without esophagitis; F17.200 Nicotine dependence, unspecified, uncomplicated
CPT/HCPCS: 87081; 87426; 87804; 87880; 99213; G0463